=== PATIENT | female | born 1995 | race Asian ===

== ENCOUNTER 2021-05-25 20:33 | Emergency (ER) | payer OTHER, SELFPAY ==
[2021-05-25 20:34] VITALS: BP 123/86; PULSE 88; RESP 16; TEMP 37; O2SAT 100; BMI 25.0
[2021-05-25] MEDS: HYDROcodone Bitartrate/Apap 5/325 Tablet PO (21:11)
--- NOTE | 2021-05-25 21:18 | ED.VIS.BACK ---
HPI History of Present Illness Chief Complaint: Back Informant: patient Onset/Context/Timing Onset: Today Context: Gradual Onset Injury: bending Timing: Continuous Quality: Sharp Location: Lumbar Worsened by: improves with Nothing Relieved by: Nothing Associated Symptoms Associated Symptoms: Negative for Numbness, Tingling, Radiation to Right Leg, Radiation to Left Leg, Fever, Abdominal Pain, Dysuria, Unable to Ambulate, Unable to Transfer, Urinary Retention, Urinary Incontinence, Constipation and Fecal Incontinence Narrative Narrative: Patient presents with back pain that began today. Patient states she was sitting and studying most of the day today. Patient states she bent over and felt pain in her low back. Patient states it is gradually getting worse. Patient states it is constant. Patient describes her pain is sharp. Patient states it radiates into her right hip. Patient states nothing makes it worse and nothing makes it better. Patient denies any paresthesias or weakness. Patient denies any bowel or bladder changes. Patient denies any saddle anesthesia. PFSH PFSH Medical History no medical history no medical history Home Medications hydrocodone-acetaminophen 1 tab PO Q6H PRN PRN 3 Days #10 tablet 05/25/21 [Rx Last Taken Unknown] Allergy/AdvReac Type Severity Reaction Status Date / Time No Known Allergies Allergy Verified 05/25/21 20:36 Surgical History no surgical history no surgical history Social History Smoking Status: Never smoker ROS ROS ED Constitutional Constitutional ED: Denies chills or fever(s) Eyes Eyes: Denies blurry vision or change in vision ENT ENT ED: Denies rhinorrhea or sore throat Cardiovascular Cardiovascular: Denies chest pain or palpitations Respiratory/Chest Respiratory/Chest: Denies cough or dyspnea Gastrointestinal Gastrointestinal: Denies nausea or vomiting Genitourinary Genitourinary ED: Denies dysuria or hematuria Musculoskeletal Musculoskeletal: Reports back pain; Denies neck pain Integumentary Denies abscess or rash Neurologic Neurologic: Denies headache(s) or weakness Allergic/Immunologic Allergic/Immunologic ED: Denies mouth swelling or urticaria EXAM Physical Exam Const Vital Signs: 05/25/21 20:34 Temperature 98.6 F Temperature Source Temporal Pulse Rate 88 Respiratory Rate 16 Blood Pressure 123/86 H Blood Pressure Mean 98 Pulse Ox 100 Positive well nourished and well developed General Appearance ED: well developed HEENT Reports moist mucous membranes Neck supple and no JVD Back/Spine Back/Spine Narrative: There is tenderness over the lower lumbar spine in the midline. There is no edema or ecchymosis. There is no bony crepitance or step-off. Range of motion was limited in all motion secondary to pain. Patient was able to ambulate without difficulty. Lumbar Spine / Lower Back: ROM limited Extremity normal to inspection Neuro oriented x3 and no sensory deficits noted Sensorium / Orientation: alert Motor Exam: strength 5/5 throughout Psych mental status grossly normal MDM MDM MDM Narrative Medical decision making narrative: X-rays of the lumbar spine were obtained. There are 3 views. On my interpretation, there is no acute fracture or spondylolisthesis. Radiologist also interpreted the x-rays and agrees. Patient was given a dose of [place] here. Patient was given a prescription for a short course of [place]. Patient was instructed to use ice to the area. Patient was instructed to follow-up with a primary care physician in 5 to 7 days. Patient understood and was agreeable with the plan. All questions were answered. Radiography X-Ray: LS SPine, Read by ED Physician, Read by Radiologist, Normal, No Fracture and Normal Bony Alignment Diagnostic Testing: Clinical Impression(s) from Imaging Studies Lumbar Spine X-Ray 05/25/21 21:20 IMPRESSION: No evidence of lumbar spinal fracture or spondylolisthesis. Mild lateral curvature suspected to be positional. Please correlate clinically with physical exam. Asymmetric muscle spasms could potentially give a similar appearance. Electronically Signed: Zaire Mccrary DO at 21:58 EST Tel , Service support , Discharge Plan Triage Chief Complaint: Back ED Provider: Arley Porter Dx/Rx/DC Orders Clinical Impression: Acute low back pain Instructions: ED Back Exercises, Lumbar, ED Back Pain (Acute or Chronic) Prescriptions: New hydrocodone-acetaminophen [hydrocodone-acetaminophen] 1 TABLET tablet 1 tab PO Q6H PRN PRN (Reason: Pain) 3 Days Qty: 10 RF: 0 Primary Care Provider: Care Physician,No Primary Referrals: Dean Nichols MD [STAFF PHYSICIAN] - 5-7 Days Care Physician,No Primary [Primary Care Provider] - Disposition Disposition: Home, Self Care
--- NOTE | 2021-05-25 21:20 | RAD_ITS ---
INDICATION: Injury/Pain EXAMINATION/TECHNIQUE: X-RAY - XR Spine Lumbar 2 or 3 Views COMPARISON: None. FINDINGS: VERTEBRAE: Preserved vertebral body height. No fracture. No spondylolisthesis. Preservation of the normal lumbar lordosis. No significant facet arthropathy. DISCS: Disc spaces are maintained. Mild lateral curvature may potentially be positional. Correlate with physical exam. INCLUDED ABDOMEN: Included bowel gas pattern is non-obstructive. RAD/Lumbar Spine 2 or 3 Views IMPRESSION: No evidence of lumbar spinal fracture or spondylolisthesis. Mild lateral curvature suspected to be positional. Please correlate clinically with physical exam. Asymmetric muscle spasms could potentially give a similar appearance. Electronically Signed: Zaire Mccrary DO at 21:58 EST Tel , Service support ,
== END 2021-05-25 22:53 | disposition home or self-care (01) ==
PROVIDERS: Emergency Provider Emergency Medicine
DX: M54.50 Low back pain, unspecified (principal)
CPT/HCPCS: 72100; 99283